=== PATIENT | female | born 1990 | race African-American/Black ===

== ENCOUNTER 2021-02-28 07:53 | Inpatient (IN) | payer BC ==
[2021-02-28] MEDS ORDERED: Sodium Chloride 0.9% 10 ML Syringe FLUSH PRN (09:29)
[2021-02-28] MEDS ORDERED: Sodium Chloride 0.9% 10 ML SDV IV PRN (09:29)
[2021-02-28] MEDS ORDERED: Ondansetron 4 MG/2 ML SDV IVPUSH PRN (09:29)
[2021-02-28] MEDS ORDERED: Misoprostol 25 MCG (1/4 of 100 MCG) Tab VAG PRN ×2 (09:29)
[2021-02-28] MEDS ORDERED: Nalbuphine 10 MG/1 ML Vial IVPUSH PRN (09:29)
[2021-02-28] MEDS ORDERED: Methylergonovine 0.2 MG/1 ML Amp IM PRN (09:29)
[2021-02-28] MEDS ORDERED: Carboprost Tromethamine 250 MCG/1 ML Amp IM PRN (09:29)
[2021-02-28] MEDS ORDERED: Tranexamic Acid 1,000 MG in Sodium Chloride 0.9% 100 ML IV PRN (09:29)
[2021-02-28] MEDS ORDERED: Lidocaine 1% 50 ML MDV INJECT PRN (09:29)
[2021-02-28] MEDS ORDERED: Water For Irrigation,Sterile 1,000 ML Container IRR PRN (09:29)
[2021-02-28] MEDS ORDERED: Sodium Chloride 0.9% 2.5 ML Syringe FLUSH PRN (09:29)
[2021-02-28] MEDS ORDERED: Terbutaline 1 MG/ML SDV SUBCUT PRN (09:29)
[2021-02-28] MEDS ORDERED: Misoprostol 200 MCG Tab PO PRN (09:29)
[2021-02-28] MEDS ORDERED: Oxytocin/0.9 % Sodium Chloride 30 UNIT/500 ML BAG IV SCH (09:30)
[2021-02-28] MEDS ORDERED: Lactated Ringers 1,000 ML IV SCH (09:30)
[2021-02-28] MEDS: Oxytocin/0.9 % Sodium Chloride 30 UNIT/500 ML BAG IV SCH ×3 (23:05→23:55)
[2021-03-01] MEDS: Oxytocin/0.9 % Sodium Chloride 30 UNIT/500 ML BAG IV SCH (00:40)
[2021-03-01] MEDS: Butorphanol 1 MG/ML SDV IVPUSH PRN ×2 (01:23→02:51)
[2021-03-01] MEDS ORDERED: Lanolin 100% Cream 7 GM Tube TOP PRN (05:19)
[2021-03-01] MEDS ORDERED: Bisacodyl 10 MG Supp RECTAL PRN (05:19)
[2021-03-01] MEDS ORDERED: Acetaminophen 500 MG Tab PO PRN (05:19)
[2021-03-01] MEDS ORDERED: Docusate Sodium 100 MG Cap PO PRN (05:19)
[2021-03-01] MEDS ORDERED: Witch Hazel Medicated Pads 40/Jar TOP PRN (05:19)
[2021-03-01] MEDS ORDERED: oxyCODONE 5 MG Tab PO PRN (05:19)
[2021-03-01] MEDS ORDERED: Benzocaine/Menthol 20%-0.5% Spray 78 GM Cannister TOP PRN (05:19)
--- NOTE | 2021-03-01 05:27 | PCM.DEL ---
L & D Note - General Info Date of Service: 03/01/21 Mother's Due Date: 03/05/21 - Delivery Note Labor: Induced by Oxytocin Cervical Ripening Method: Misoprostil Delivery Outcome: Livebirth Infant Delivery Method: Spontaneous Vaginal Delivery-Single Presentation: Right Occiput Anterior (TATI) (with compound right hand) Nuchal Cord: None Anesthesia Type: Local Anesthetic: Lidocaine (Xylocaine) 0.5% Plain Local Anesthetic Volume: 5cc Amniotic Fluid Description: Clear Episiotomy Type: None Laceration: 1st Degree Suture type: Vicryl Placenta: Intact, Spontaneous Cord: 3 Vessels Estimated Blood Loss: 300 Resuscitation Needed: No Mellen: Bulb Syringe, Stimulated, Warmed Score 1 min: 8 Score 5 min: 9 Delivery Comments (Free Text/Narrative):: Live male infant, weight pending - General Info Date of Service: 03/01/21 - Patient Data Weight - Most Recent: 97.522 kg Lab Results Last 24 Hours: Laboratory Results - last 24 hr 02/28/21 02/28/21 Range/Units 09:50 09:50 WBC 9.57 (4.0-11.0) K/uL RBC 3.71 L (4.30-5.90) M/uL Hgb 9.8 L (12.0-16.0) g/dL Hct 29.2 L (36.0-46.0) % MCV 78.7 L (80.0-98.0) fL MCH 26.4 L (27.0-32.0) pg MCHC 33.6 (31.0-37.0) g/dL RDW Std Deviation 43.0 (28.0-62.0) fl RDW Coeff of Katlyn 15 (11.0-15.0) % Plt Count 317 (150-400) K/uL MPV 10.20 (7.40-12.00) fL Nucleated RBC % 0.0 /100WBC Nucleated RBCs # 0 K/uL Blood Type B POSITIVE Antibody Screen NEGATIVE Med Orders - Current: Current Medications Acetaminophen (Acetaminophen 500 Mg Tab) 1,000 mg PO Q6H PRN PRN Reason: Pain (mild 1-3) Benzocaine/Menthol (Benzocaine/Menthol 20%-0.5% [place] 78 Gm Cannister) 78 gm TOP ASDIRECTED PRN PRN Reason: Perineal Comfort Measure Bisacodyl (Bisacodyl 10 Mg Supp) 10 mg RECTAL ONETIME PRN PRN Reason: Constipation Butorphanol Tartrate (Butorphanol 1 Mg/Ml Sdv) 1 mg IVPUSH Q1H PRN PRN Reason: Pain (severe 7-10) Last Admin: 03/01/21 02:51 Dose: 1 mg Documented by: Carboprost Tromethamine (Carboprost Tromethamine 250 Mcg/1 Ml Amp) 250 mcg IM ASDIRECTED PRN PRN Reason: Post Hemorrhage Docusate Sodium (Docusate Sodium 100 Mg Cap) 100 mg PO Q12H PRN PRN Reason: Constipation Emollient Ointment (Lanolin 100% Cream 7 Gm Tube) 0 gm TOP ASDIRECTED PRN PRN Reason: Sore Nipples Oxytocin/Sodium Chloride (Oxytocin 30 Unit/500 Ml-Ns) 30 unit in 500 mls @ 999 mls/hr IV TITRATE STEPHEN Tranexamic Acid 1,000 mg/ (Sodium Chloride) 110 mls @ 660 mls/hr IV ONETIME PRN PRN Reason: Bleeding Oxytocin/Sodium Chloride (Oxytocin 30 Unit/500 Ml-Ns) 30 unit in 500 mls @ 2 mls/hr IV TITRATE STEPHEN; Protocol Last Admin: 03/01/21 00:40 Dose: 8 munits/min, 8 mls/hr Documented by: Lactated Ringer's (Ringers, Lactated) 1,000 mls @ 150 mls/hr IV ASDIRECTED STEPHEN Last Admin: 02/28/21 23:04 Dose: 150 mls/hr Documented by: Ibuprofen (Ibuprofen 800 Mg Tab) 800 mg PO Q8H PRN PRN Reason: Pain (mild 1-3) Lidocaine HCl (Lidocaine 1% 50 Ml Mdv) 50 ml INJECT ONETIME PRN PRN Reason: Laceration repair Methylergonovine Maleate (Methylergonovine 0.2 Mg/1 Ml Amp) 0.2 mg IM ASDIRECTED PRN PRN Reason: Post Hemorrhage Misoprostol (Misoprostol 200 Mcg Tab) 200 mcg PO ONETIME PRN PRN Reason: Post Hemorrhage Misoprostol (Misoprostol 25 Mcg (1/4 Of 100 Mcg) Tab) 25 mcg VAG ONETIME PRN PRN Reason: Cervical Ripening Last Admin: 02/28/21 14:42 Dose: 25 mcg Documented by: Misoprostol (Misoprostol 25 Mcg (1/4 Of 100 Mcg) Tab) 25 mcg VAG Q4H PRN PRN Reason: Cervical Ripening Last Admin: 02/28/21 18:49 Dose: 25 mcg Documented by: Nalbuphine HCl (Nalbuphine 10 Mg/1 Ml Vial) 10 mg IVPUSH Q1H PRN PRN Reason: Pain (severe 7-10) Ondansetron HCl (Ondansetron 4 Mg/2 Ml Sdv) 4 mg IVPUSH Q4H PRN PRN Reason: Nausea/Vomiting Last Admin: 03/01/21 00:44 Dose: 4 mg Documented by: Oxycodone HCl (Oxycodone 5 Mg Tab) 5 mg PO Q2H PRN PRN Reason: Pain (severe 7-10) Sodium Chloride (Sodium Chloride 0.9% 10 Ml Syringe) 10 ml FLUSH ASDIRECTED PRN PRN Reason: Keep Vein Open Sodium Chloride (Sodium Chloride 0.9% 2.5 Ml Syringe) 2.5 ml FLUSH ASDIRECTED PRN PRN Reason: Keep Vein Open Sodium Chloride (Sodium Chloride 0.9% 10 Ml Sdv) 10 ml IV ASDIRECTED PRN PRN Reason: IV Use Sterile Water (Water For Irrigation,Sterile 1,000 Ml Container) 1,000 ml IRR ASDIRECTED PRN PRN Reason: delivery Terbutaline Sulfate (Terbutaline 1 Mg/Ml Sdv) 0.25 mg SUBCUT ASDIRECTED PRN PRN Reason: Tacysystole Witch Debi (Witch Debi Medicated Pads 40/Jar) 1 pad TOP ASDIRECTED PRN PRN Reason: comfort care Discontinued Medications Tranexamic Acid (Tranexamic Acid 1,000 Mg/10 Ml Amp) Confirm Administered Dose 1,000 mg .ROUTE .STKannact-MED ONE Stop: 03/01/21 00:55 - Problem List & Annotations (1) Vaginal delivery SNOMED Code(s): 305851354 Code(s): O80 - ENCOUNTER FOR FULL-TERM UNCOMPLICATED DELIVERY Status: Acute Current Visit: Yes - Problem List Review Problem List Initiated/Reviewed/Updated: Yes - My Orders Last 24 Hours: My Active Orders 02/28/21 08:00 Patient Status [ADT] Routine Vaginal Exam [RC] PRN Vital Signs [RC] PER UNIT ROUTINE 02/28/21 08:05 Non Stress Test [RC] PER UNIT ROUTINE 02/28/21 09:29 Bedrest Bathroom Privileges [RC] ASDIRECTED Communication Order [RC] ASDIRECTED Communication Order [RC] ASDIRECTED Communication Order [RC] ASDIRECTED Heart Tones [RC] CONTINUOUS May Shower [RC] ASDIRECTED Notify Provider [RC] PRN Notify Provider [RC] PRN Notify Provider [RC] PRN Notify Provider [RC] STAT Oxygen Therapy [RC] ASDIRECTED Up ad Zeny [RC] ASDIRECTED Vaginal Exam [RC] PRN Vital Signs [RC] PER UNIT ROUTINE Butorphanol [Stadol] 1 mg IVPUSH Q1H PRN Carboprost Tromethamine [Hemabate DS] 250 mcg IM ASDIRECTED PRN Lidocaine 1% [Xylocaine 1%] 50 ml INJECT ONETIME PRN Methylergonovine [Methergine] 0.2 mg IM ASDIRECTED PRN Nalbuphine [Nubain] 10 mg IVPUSH Q1H PRN Ondansetron [Zofran] 4 mg IVPUSH Q4H PRN Sodium Chloride 0.9% [Normal Saline] 10 ml IV ASDIRECTED PRN Sodium Chloride 0.9% [Saline Flush] 10 ml FLUSH ASDIRECTED PRN Sodium Chloride 0.9% [Saline Flush] 2.5 ml FLUSH ASDIRECTED PRN Terbutaline [Brethine] 0.25 mg SUBCUT ASDIRECTED PRN Tranexamic Acid [Cyklokapron] 1,000 mg Sodium Chloride 0.9% [Normal Saline] 100 ml IV ONETIME Water For Irrigation,Sterile [Sterile Water for Irrigation] 1,000 ml IRR ASDIRECTED PRN miSOPROStoL [Cytotec] 200 mcg PO ONETIME PRN miSOPROStoL [Cytotec] 25 mcg VAG ONETIME PRN miSOPROStoL [Cytotec] 25 mcg VAG Q4H PRN Scalp Electrode [WOMSER] Per Unit Routine Peripheral IV Insertion Adult [OM.PC] Routine Resuscitation Status Routine 02/28/21 09:30 Lactated Ringers [Ringers, Lactated] 1,000 ml IV ASDIRECTED Oxytocin/0.9 % Sodium Chloride [Oxytocin 30 Unit/500 ML-NS] 30 unit in 500 ml IV TITRATE Oxytocin/0.9 % Sodium Chloride [Oxytocin 30 Unit/500 ML-NS] 30 unit in 500 ml IV TITRATE Medication Administration Instruction [OM.PC] Q3H 02/28/21 09:50 RPR (SYPHILIS SERO) W/ RFLX [REF] Stat 02/28/21 Lunch Regular Diet [DIET] 03/01/21 05:19 Patient Status [ADT] Routine May Shower [RC] ASDIRECTED Notify Provider Vital Signs [RC] ASDIRECTED Up ad Zeny [RC] ASDIRECTED Vital Signs [RC] PER UNIT ROUTINE Acetaminophen [Tylenol Extra Strength] 1,000 mg PO Q6H PRN Benzocaine/Menthol [Dermoplast Pain Relief 20%-0.5% [place]] 78 gm TOP ASDIRECTED PRN Docusate Sodium [Colace] 100 mg PO Q12H PRN Ibuprofen [Motrin] 800 mg PO Q8H PRN Lanolin [Lansinoh HPA] See Dose Instructions TOP ASDIRECTED PRN bisacodyL [Dulcolax] 10 mg RECTAL ONETIME PRN oxyCODONE 5 mg PO Q2H PRN witch Debi [Tucks] 1 pad TOP ASDIRECTED PRN Assess Lochia [WOMSER] Per Unit Routine Assess Uterine Involution [WOMSER] Per Unit Routine Breast Pump [WOMSER] Per Unit Routine Peripheral IV Discontinue [OM.PC] Routine 03/01/21 05:20 Cooling Warming Measures [RC] ASDIRECTED Ice Therapy [OM.PC] Per Unit Routine Perineal Care [OM.PC] Per Unit Routine Sitz Bath [OM.PC] Per Unit Routine 03/01/21 Breakfast Regular Diet [DIET] 03/02/21 05:11 HEMOGLOBIN/HEMATOCRIT,HH [HEME] Timed - Assessment Assessment:: 30yo s/p at 39w3d - Plan Plan:: Admit to unit for routine care Rh positive, Rubella immune, GBS negative History of PP hemorrhage, no issues with bleeding this delivery
[2021-03-01] MEDS: Ibuprofen 800 MG Tab PO PRN ×2 (06:24→12:47)
--- NOTE | 2021-03-01 12:42 | OR ---
SURGEON: Melida Villa MD DATE OF PROCEDURE: 03/01/2021 PREOPERATIVE DIAGNOSES: 1. A 30-year-old G2, P1-0-0-1 at 39 weeks and 3 days gestation. 2. Elective induction of labor. 3. Group B Streptococcus negative. 4. History of hemorrhage. POSTOPERATIVE DIAGNOSES: 1. A 30-year-old G2, P2-0-0-2 at 39 weeks and 3 days gestation. 2. Elective induction of labor. 3. Group B Streptococcus negative. 4. History of hemorrhage. PROCEDURES: Spontaneous vaginal delivery and repair of first-degree perineal laceration. PRIMARY SURGEON: Melida Villa MD ANESTHESIA: Local. ESTIMATED BLOOD LOSS: 300 mL. FINDINGS: Live male in right occiput anterior position with compound right hand. True knot in the umbilical cord. scores of 8 and 9 at one and five minutes respectively. Weight pending. Placenta intact with 3-vessel cord. First-degree perineal laceration. INDICATIONS: This is a 30-year-old G2, P1-0-0-1 who presented at 39 weeks and 2 days gestation for scheduled elective induction of labor. Upon presentation, her cervix was found to be 3 cm dilated. She underwent artificial rupture of membranes with clear fluid noted and began nipple stimulation to try to induce labor more naturally. After several hours of minimal cervical change, she was started on misoprostol. She received 2 doses of misoprostol without additional cervical change. At this time, she was started on Pitocin, which she initially was hesitant to use, however, was agreeable at this time. She progressed to complete cervical dilation, and I was called to the room. DESCRIPTION OF PROCEDURE: I arrived to the room with the patient's cervix completely dilated and fetus at +1 station. Over the next 2 contractions, the patient pushed and delivered a live male infant. Head was delivered along with compound right hand followed quickly by the shoulders and remainder of the body. The was placed on the maternal abdomen. A true knot was noted in the cord near the abdominal insertion site. After approximately 60 seconds, the cord was clamped and cut. Cord blood was then obtained. Placenta then delivered intact with 3-vessel cord via the Sanchez-Olsen maneuver. The perineum was inspected, and a first-degree perineal laceration was noted. This was repaired to anatomy and hemostasis with 3-0 Vicryl after infiltration with 1% lidocaine. The patient's fundus remained firm and below the umbilicus with minimal bleeding. She will be monitored closely due to history of hemorrhage due to the uterine atony. The patient and infant tolerated delivery well. OTILIA / KRISSY /[id number]
[2021-03-02] MEDS: Ibuprofen 800 MG Tab PO PRN ×2 (08:33→15:56)
--- NOTE | 2021-03-02 11:57 | PCM.PNPP ---
- General Info Date of Service: 03/02/21 Functional Status: Reports: Pain Controlled, Tolerating Diet, Ambulating, Urinating - Review of Systems General: Reports: No Symptoms HEENT: Reports: No Symptoms Pulmonary: Reports: No Symptoms Cardiovascular: Reports: No Symptoms Gastrointestinal: Reports: No Symptoms Genitourinary: Reports: No Symptoms Musculoskeletal: Reports: No Symptoms Skin: Reports: No Symptoms Neurological: Reports: No Symptoms Psychiatric: Reports: No Symptoms - Patient Data Vital Signs - Most Recent: Last Vital Signs Temp 36.7 C 03/02/21 08:18 Pulse 79 03/02/21 08:18 Resp 18 03/02/21 08:18 BP 97/60 03/02/21 08:18 Pulse Ox 99 03/02/21 08:18 Weight - Most Recent: 215 lb Lab Results - Last 24 Hours: Laboratory Results - last 24 hr 03/02/21 Range/Units 05:32 Hgb 9.6 L (12.0-16.0) g/dL Hct 28.6 L (36.0-46.0) % Med Orders - Current: Current Medications Acetaminophen (Acetaminophen 500 Mg Tab) 1,000 mg PO Q6H PRN PRN Reason: Pain (mild 1-3) Benzocaine/Menthol (Benzocaine/Menthol 20%-0.5% [place] 78 Gm Cannister) 78 gm TOP ASDIRECTED PRN PRN Reason: Perineal Comfort Measure Last Admin: 03/01/21 06:24 Dose: 1 can Documented by: Bisacodyl (Bisacodyl 10 Mg Supp) 10 mg RECTAL ONETIME PRN PRN Reason: Constipation Docusate Sodium (Docusate Sodium 100 Mg Cap) 100 mg PO Q12H PRN PRN Reason: Constipation Emollient Ointment (Lanolin 100% Cream 7 Gm Tube) 0 gm TOP ASDIRECTED PRN PRN Reason: Sore Nipples Oxytocin/Sodium Chloride (Oxytocin 30 Unit/500 Ml-Ns) 30 unit in 500 mls @ 2 mls/hr IV TITRATE STEPHEN; Protocol Last Admin: 03/01/21 00:40 Dose: 8 munits/min, 8 mls/hr Documented by: Ibuprofen (Ibuprofen 800 Mg Tab) 800 mg PO Q8H PRN PRN Reason: Pain (mild 1-3) Last Admin: 03/02/21 08:33 Dose: 800 mg Documented by: Misoprostol (Misoprostol 25 Mcg (1/4 Of 100 Mcg) Tab) 25 mcg VAG ONETIME PRN PRN Reason: Cervical Ripening Last Admin: 02/28/21 14:42 Dose: 25 mcg Documented by: Misoprostol (Misoprostol 25 Mcg (1/4 Of 100 Mcg) Tab) 25 mcg VAG Q4H PRN PRN Reason: Cervical Ripening Last Admin: 02/28/21 18:49 Dose: 25 mcg Documented by: Oxycodone HCl (Oxycodone 5 Mg Tab) 5 mg PO Q2H PRN PRN Reason: Pain (severe 7-10) Sodium Chloride (Sodium Chloride 0.9% 10 Ml Syringe) 10 ml FLUSH ASDIRECTED PRN PRN Reason: Keep Vein Open Sodium Chloride (Sodium Chloride 0.9% 2.5 Ml Syringe) 2.5 ml FLUSH ASDIRECTED PRN PRN Reason: Keep Vein Open Sodium Chloride (Sodium Chloride 0.9% 10 Ml Sdv) 10 ml IV ASDIRECTED PRN PRN Reason: IV Use Terbutaline Sulfate (Terbutaline 1 Mg/Ml Sdv) 0.25 mg SUBCUT ASDIRECTED PRN PRN Reason: Tacysystole Witch Debi (Witch Debi Medicated Pads 40/Jar) 1 pad TOP ASDIRECTED PRN PRN Reason: comfort care Last Admin: 03/01/21 06:24 Dose: 1 canister Documented by: Discontinued Medications Butorphanol Tartrate (Butorphanol 1 Mg/Ml Sdv) 1 mg IVPUSH Q1H PRN PRN Reason: Pain (severe 7-10) Last Admin: 03/01/21 02:51 Dose: 1 mg Documented by: Carboprost Tromethamine (Carboprost Tromethamine 250 Mcg/1 Ml Amp) 250 mcg IM ASDIRECTED PRN PRN Reason: Post Hemorrhage Oxytocin/Sodium Chloride (Oxytocin 30 Unit/500 Ml-Ns) 30 unit in 500 mls @ 999 mls/hr IV TITRATE STEPHEN Tranexamic Acid 1,000 mg/ (Sodium Chloride) 110 mls @ 660 mls/hr IV ONETIME PRN PRN Reason: Bleeding Lactated Ringer's (Ringers, Lactated) 1,000 mls @ 150 mls/hr IV ASDIRECTED STEPHEN Last Admin: 02/28/21 23:04 Dose: 150 mls/hr Documented by: Lidocaine HCl (Lidocaine 1% 50 Ml Mdv) 50 ml INJECT ONETIME PRN PRN Reason: Laceration repair Last Admin: 03/01/21 04:55 Dose: 50 ml Documented by: Methylergonovine Maleate (Methylergonovine 0.2 Mg/1 Ml Amp) 0.2 mg IM ASDIRECTED PRN PRN Reason: Post Hemorrhage Misoprostol (Misoprostol 200 Mcg Tab) 200 mcg PO ONETIME PRN PRN Reason: Post Hemorrhage Nalbuphine HCl (Nalbuphine 10 Mg/1 Ml Vial) 10 mg IVPUSH Q1H PRN PRN Reason: Pain (severe 7-10) Ondansetron HCl (Ondansetron 4 Mg/2 Ml Sdv) 4 mg IVPUSH Q4H PRN PRN Reason: Nausea/Vomiting Last Admin: 03/01/21 00:44 Dose: 4 mg Documented by: Sterile Water (Water For Irrigation,Sterile 1,000 Ml Container) 1,000 ml IRR ASDIRECTED PRN PRN Reason: delivery Tranexamic Acid (Tranexamic Acid 1,000 Mg/10 Ml Amp) Confirm Administered Dose 1,000 mg .ROUTE .STMountain [employer]-MED ONE Stop: 03/01/21 00:55 Last Admin: 03/01/21 10:24 Dose: Not Given Documented by: - Interaction Infant Disposition, : [place] at Bedside Infant Interaction: Holding Infant Feeding: Attempted ; Nursed Fair/Poor - Recovery Exam Fundal Tone: Firm Fundal Level: 1 Fingerbreadths Below Umbilicus Fundal Placement: Midline Lochia Amount: Scant Lochia Color: Rubra/Red Perineum Description: Intact, Minimal Bruising/Swelling, Other (see below) Other Perinuem Description: 1st degree laceration Episiotomy/Laceration: Approximated Bladder Status: Voiding - Exam General: Alert, Oriented, Cooperative, No Acute Distress HEENT: Pupils Equal, Pupils Reactive Neck: Supple, Trachea Midline Lungs: Normal Respiratory Effort GI/Abdominal Exam: Soft, Non-Tender, No Distention Extremities: Normal Inspection, Normal Range of Motion, Non-Tender, No Pedal Edema Skin: Warm, Dry, Intact Wound/Incisions: Healing Well Neurological: No New Focal Deficit Psy/Mental Status: Alert, Normal Affect, Normal Mood - Problem List Review Problem List Initiated/Reviewed/Updated: Yes - My Orders Last 24 Hours: My Active Orders 03/02/21 11:50 Ready for Discharge [RC] PER UNIT ROUTINE - Assessment Assessment:: 30yo PPD1 s/p at 39w3d. Stable and recovering well. - Plan Plan:: vitals stable ambulating and tolerating PO Bleeding light. Hgb stable, has anemia, will continue iron after discharge and pumping Stable for discharge home, reviewed care instructions
== END 2021-03-02 16:25 | disposition home or self-care (01) | DRG 560 ==
LOC: MW.OBCHECK 07:53 → MW.OB 07:54 → MW.OBCHECK 07:59 → MW.OB 08:00 → OBSVTOIN 03-01 04:56 → MW.OB 03-01 09:37
PROVIDERS: ADMIT Obstetrics & Gynecology; ATTEND Obstetrics & Gynecology
PROC: 10E0XZZ Delivery of Products of Conception, External Approach (ICD-10-PCS; principal; 2021-03-01)
PROC: 0HQ9XZZ Repair Perineum Skin, External Approach (ICD-10-PCS; 2021-03-01)
PROC: 10907ZC Drainage of Amniotic Fluid, Therapeutic from Products of Conception, Via Natural or Artificial Opening (ICD-10-PCS; 2021-03-01)
PROC: 3E0P7VZ Introduction of Hormone into Female Reproductive, Via Natural or Artificial Opening (ICD-10-PCS; 2021-03-01)
DX: O70.0 First degree perineal laceration during delivery (principal); Z3A.39 39 weeks gestation of pregnancy; Z37.0 Single live birth
CPT/HCPCS: 36415; 59025; 59409; 85014; 85018; 85027; 86592; 86850; 86900; 86901; A9270-GY; J0595; J2001; J2405; J2590; J7120

== ENCOUNTER 2021-06-20 21:51 | Emergency (ER) | payer BC ==
--- NOTE | 2021-06-20 23:12 | EDM.PDOC ---
ED HPI GENERAL MEDICAL PROBLEM - General Chief Complaint: ENT Problem Stated Complaint: EAR PAIN, POSSIBLE INFECTION Time Seen by Provider: 06/20/21 22:14 - History of Present Illness INITIAL COMMENTS - FREE TEXT/NARRATIVE: History of present illness: [] The patient suffered sinus congestion for a couple of days. Now she has pain in the left ear. She cleans her ear with Q-tips and the mother says she see something in the ear canal. The pain is moderately severe and constant. Nothing makes it better or worse. Patient does not have systemic signs of sepsis. She is tachycardic but that is the only sign. I do not consider her her septic. She is alert and in no acute distress. Review of systems: As per history of present illness and below otherwise all systems reviewed and negative. Past medical history: As per history of present illness and as reviewed below otherwise noncontributory. Surgical history: As per history of present illness and as reviewed below otherwise noncontributory. Social history: No reported history of drug or alcohol abuse. Family history: As per history of present illness and as reviewed below otherwise noncontributory. Physical exam: Constitutional - well developed, well-nourished and in no acute distress HEENT -right TM and canal are normal. Left canal has a cotton type foreign ball in the canal. This disintegrated when I tried to remove it and I took out enough that I can see the tympanic membrane and 80% clear the canal. Tympanic membrane is intact red and bulging. Normocephalic, no evidence of trauma - external nose and mouth normal - no mass in neck and no JVD - mucosae moist EYES - full EOM, PERRL, no icterus - no evidence of inflammation, injection, or drainage Respiratory - no respiratory distress, equal bilateral expansion, lungs clear to auscultation and no abnormal lung sounds Cardiovascular - Regular Rhythm with S1 and S2 appreciated and no murmur, gallop or rub. GI - abdomen soft without distension or organomegaly - normal bowel sounds - no guard or rebound Musculoskeletal no gross deformity of long bones or joints - no tenderness, swelling or edema Neurologic - Alert and oriented times four - CN II-XII grossly intact - motor sensory and coordination symmetrically normal Psychiatric - appropriate mood and affect with normal thought content Hematologic - No petechiae or purpura - mucosa appropriate color and sclera not pale - normal nail bed color and refill Integument - no rash or evidence of trauma - normal turgor Diagnostics: [] Therapeutics: [] Impression: [] Plan: [] Definitive disposition and diagnosis as appropriate pending reevaluation and review of above. Left Eye Pain Score (Numeric/FACES): 9 - Related Data Allergies Allergy/AdvReac Type Severity Reaction Status Date / Time No Known Allergies Allergy Verified 02/28/21 09:32 Home Meds: Home Meds Docusate Sodium [Colace] 100 mg PO Q12H PRN cap 03/02/21 [Rx] Ferrous Sulfate 60 mg PO BID #600 ml 03/02/21 [Rx] Ibuprofen [Motrin] 800 mg PO Q8H PRN tablet 03/02/21 [Rx] cephALEXin [Keflex] 500 mg PO BID #14 cap 06/20/21 [Rx] Past Medical History - Past Health History Medical/Surgical History: Denies Medical/Surgical History HEENT History: Reports: Other (See Below) Gastrointestinal History: Reports: Other (See Below) Other Gastrointestinal History: gallstones [employer] History: Reports: Hematologic History: Reports: Anemia - Past Surgical History HEENT Surgical History: Reports: Other (See Below) Other HEENT Surgeries/Procedures: removal of wisdom tooth GI Surgical History: Reports: None Social & Family History - Family History Family Medical History: No Pertinent Family History Cardiac: Reports: Other (See Below) Other Cardiac Family History: low BP GI: Reports: Other (See Below) Other GI Family History: gallstones OBGYN: Reports: Endocrine/Metabolic: Reports: Diabetes, type II - Tobacco Use Tobacco Use Status *Q: Never Tobacco User - Caffeine Use Caffeine Use: Reports: None - Recreational Drug Use Recreational Drug Use: No ED ROS GENERAL - Review of Systems Review Of Systems: Comprehensive ROS is negative, except as noted in HPI. ED EXAM, GENERAL - Physical Exam Exam: See Below Free Text/Narrative:: My physical exam is in the HPI. Course - Vital Signs Last Recorded V/S: Last Vital Signs Temp 37.0 C 06/20/21 22:06 Pulse 114 H 06/20/21 22:06 Resp 18 06/20/21 22:06 BP 131/79 06/20/21 22:06 Pulse Ox 95 06/20/21 22:06 Departure - Departure Time of Disposition: 23:09 Disposition: Home, Self-Care 01 Condition: Good Clinical Impression: Otitis media, Foreign body in ear - Discharge Information Prescriptions: cephALEXin [Keflex] 500 mg PO BID #14 cap Instructions: Ear Foreign Body, [id number], Otitis Media, Adult, [id number] Referrals: PCP,None [Primary Care Provider] - Additional Instructions: Irrigate the ear canal gently. Use Cortisporin topical solution [id number] anesthetic eardrops. A prescription was Keflex was sent to the pharmacy. [facility] [address] [place] [id number] [id number] The following information is given to patients seen in the emergency department who are being discharged to home. This information is to outline your options for follow-up care. We provide all patients seen in our emergency department with a follow-up referral. The need for follow-up, as well as the timing and circumstances, are variable depending upon the specifics of your emergency department visit. If you don't have a primary care physician on staff, we will provide you with a referral. We always advise you to contact your personal physician following an emergency department visit to inform them of the circumstance of the visit and for follow-up with them and/or the need for any referrals to a consulting specialist. The emergency department will also refer you to a specialist when appropriate. This referral assures that you have the opportunity for follow-up care with a specialist. All of these measure are taken in an effort to provide you with optimal care, which includes your follow-up. Under all circumstances we always encourage you to contact your private physician who remains a resource for coordinating your care. When calling for follow-up care, please make the office aware that this follow-up is from your recent emergency room visit. If for any reason you are refused follow-up, please contact the [facility] Emergency Department at and asked to speak to the emergency department charge nurse. Sepsis Event Note (ED) - Evaluation Sepsis Screening Result: Possible Sepsis Risk - Focused Exam Vital Signs: Vital Signs Temp Pulse Resp BP Pulse Ox 06/20/21 22:06 37.0 C 114 H 18 131/79 95
--- NOTE | 2021-06-21 10:22 | PCM.SN.2 ---
- Free Text/Narrative Note: Received a call on 06/21/2021 at 10:20am from patient that she did not receive the Cortisporin otic suspension at the pharmacy. Patient states she was able to picker feeder the Keflex order, but was unable to get the eardrops that she thought would be at the pharmacy. I did review the provider's note from her visit and it does appear in his instructions that he did desire for her to have Cortisporin otic suspension. I will send this to [facility] pharmacy for patient.
== END 2021-06-20 23:22 | disposition home or self-care (01) ==
LOC: MW.ED 21:51
DX: T16.1XXA Foreign body in right ear, initial encounter (principal); H66.91 Otitis media, unspecified, right ear
CPT/HCPCS: 99282